=== PATIENT | female | born 1980 | race Caucasian/White ===

== ENCOUNTER → 2017-02-04 | Outpatient (CLI) | payer BC ==
[2017-02-04 14:05] LABS: Prolactin 13.3 ng/mL (3.0-18.6)
== END ==
LOC: LABWHC1 11:18
PROVIDERS: ATTEND Internal Medicine Endocrinology, Diabetes & Metabolism
DX: R53.83 Other fatigue (principal)
CPT/HCPCS: 36415; 82024; 82533; 82607; 84146

== ENCOUNTER → 2017-04-22 | Outpatient (CLI) | payer BC | END | disposition home or self-care (01) | LOC: LABWHC1 09:34 | PROVIDERS: ATTEND Internal Medicine Endocrinology, Diabetes & Metabolism | DX: E03.8 Other specified hypothyroidism (principal) | CPT/HCPCS: 36415; 84443 ==

== ENCOUNTER → 2018-04-27 | Outpatient (CLI) | payer BC | END | disposition home or self-care (01) | LOC: LABWHC1 12:08 | PROVIDERS: ATTEND Internal Medicine Endocrinology, Diabetes & Metabolism | DX: E03.8 Other specified hypothyroidism (principal) | CPT/HCPCS: 36415; 84443 ==

== ENCOUNTER → 2018-12-10 | Outpatient (CLI) | payer BC | LOC: LABWHC1 16:14 | PROVIDERS: ATTEND Internal Medicine Endocrinology, Diabetes & Metabolism | DX: E03.8 Other specified hypothyroidism (principal) | CPT/HCPCS: 36415; 84443 ==

== ENCOUNTER → 2021-04-16 | Outpatient (CLI) | payer BC ==
--- NOTE | 2021-04-16 09:11 | US ---
EXAMINATION TYPE: US abdomen complete DATE OF EXAM: 04/16/2021 COMPARISON: NONE CLINICAL HISTORY: R19.00 Abdominal mass. Intermittent abdomen pain and N/V/D x couple years EXAM MEASUREMENTS: Liver Length: 20.6 cm Gallbladder Wall: 0.2 cm CBD: 0.3 cm Spleen: 12.1 cm Right Kidney: 10.4 x 4.3 x 4.5 cm Left Kidney: 11.8 x 5.8 x 4.9 cm Pancreas: visualized portions wnl, limited by overlying midline bowel gas Liver: enlarged, increased attenuation, decreased visualization of vessels suggestive of fatty infil trate Gallbladder: wnl Evidence for sonographic Velez's sign: no CBD: wnl Spleen: wnl Right Kidney: wnl Left Kidney: wnl Upper IVC: wnl Abd Aorta: wnl The liver is heterogeneous and echogenic. The intrahepatic portion of the IVC and proximal abdominal aorta are within normal limits. There is no evidence of cholelithiasis. Common bile duct is unrema rkable. The visualized portions of the pancreas are homogenous. The spleen is unremarkable. Kidney s are symmetric and free of hydronephrosis. No renal lesions are seen. IMPRESSION: The liver is heterogeneous and echogenic and borderline enlarged which is nonspecific but most common ly seen with hepatic steatosis. This limits the ability to detect a mass, however, no definite hepati c mass is seen.
== END | disposition home or self-care (01) ==
LOC: RADUSWWP 08:25
PROVIDERS: ATTEND Family Medicine
DX: R16.0 Hepatomegaly, not elsewhere classified (principal)
CPT/HCPCS: 76700